=== PATIENT | female | born 1955 | race Caucasian/White ===

== ENCOUNTER 2020-01-06 10:29 | Emergency (ER) | payer OTHER, SELFPAY ==
--- NOTE | ~2020-01-06 | CT_ITS ---
. EXAMINATION: CT brain wo con EXAM DATE: 01/06/2020 11:50 INDICATION: Paresthesias. TECHNIQUE: Spiral CT of the head was performed without contrast. Axial, coronal and sagittal images were reviewed. The dose-length product (DLP) for this examination was 605.33 mGy-cm. The exposure w as tailored according to patient size, and iterative reconstruction (ASIR) was used as additional dos e reduction technique. Comparison is made to prior examination from 06/03/2018. FINDINGS: There is no acute intraparenchymal hemorrhage. No evidence of intraparenchymal brain mass lesion. No evidence of acute infarction. Please note that initial head CT has limited sensitivity f or small or acute infarctions. There is small arachnoid cyst in the left middle cranial fossa. Ther e is moderate periventricular and subcortical hypodensity, nonspecific but probably related to small vessel ischemic disease. There is intracranial carotid arteriosclerosis. There are no extra-axial collections. There is no mass effect or midline shift. The orbits are unremarkable. Soft tissue i s unremarkable. The visualized sinuses and mastoid air cells are well aerated. Resolution of previo usly seen subdural hygromas. IMPRESSION: 1. No acute intracranial findings. 2. 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 Reviewed, dictated and finalized at location B. SPERSON
[2020-01-06 10:35] VITALS: BP 131/73; PULSE 94; RESP 16; TEMP 36.5; O2SAT 99
--- NOTE | 2020-01-06 11:32 | ED.GENADULT ---
HPI - General Adult General Chief complaint: Unspecified Stated complaint: PAIN IN MY BACK, SOMETHING ISN'T RIGHT Time Seen by Provider: 01/06/20 11:17 Source: patient Mode of arrival: ambulatory Limitations: no limitations History of Present Illness HPI narrative: This is a 64 year old female that presents to the ER for an episode of back pain just prior to arrival. Reports she was sitting at her desk. Reports she felt a sharp pain down her spine. Reports it made her feel very nauseous, but she did not vomit. Reports she then felt tingling all over her body. Reports this all lasted for about 45 seconds and the symptoms have resolved. Reports she was recently put on a steroid taper for fluid in her ear. Reports she just stopped this medicine. Reports it was making her feel very anxious and agitated. Denies any current symptoms. Denies fever, vision changes, chest pain, shortness of breath, back pain, numbness, weakness. Related Data Allergies Allergy/AdvReac Type Severity Reaction Status Date / Time clavulanic acid Allergy Mild Unknown Verified 01/06/20 10:57 amoxicillin Allergy Unknown Swelling Verified 01/06/20 10:57 Review of Systems Review of Systems: Narrative: CONSTITUTIONAL: Denies fever EYES: Denies visual changes CARDIOVASCULAR: Denies chest pain RESPIRATORY: Denies dyspnea. GASTROINTESTINAL: Denies vomiting SKIN: Denies rash MUSCULOSKELETAL: Reports back pain NEUROLOGIC: Denies headache, numbness, or weakness. PSYCHIATRIC: Reports anxiety All systems reviewed & are unremarkable except as noted in HPI and below PMFSH Past Medical History Medical History (Updated 01/06/20 @ 13:33 by Betsy Lockwood PA-C) Essential (primary) hypertension ERIBERTO (generalized anxiety disorder) Family History Family History (Updated 10/02/15 @ 23:21 by DOCTOR UNKNOWN) Mother Patient's mother is in good health Sibling Patient's sister is in good health Patient's brother is in good health Social History Social History (Updated 11/20/19 @ 15:44 by Violette Stubbs) Smoking packs per day: 0.5 Smoking cigarettes per day: 10.0 Years smoked: 20 Smoking pack-years: 10.00 Smoking status: Former smoker Tobacco type: cigarettes Second hand tobacco smoke exposure: No Smoking end date: 03/06/15 Alcohol intake: never Substance use: never Substance use type: does not use Gender identity (if verbalized by the patient): Female Exam Narrative: Exam Narrative: GENERAL: Well-appearing, well-nourished, and in no acute distress. HEAD: Normocephalic, atraumatic. EYES: PERRLA and EOMI. ENT: Nares clear, no rhinorrhea or epistaxis. Mucous membranes moist. Oropharynx without tonsillar hypertrophy exudate or other lesions. Bilateral TMs pearly mantilla non-bulging NECK: Supple. No adenopathy or masses. CHEST: Clear to auscultation. No respiratory distress. No wheezes rales or rhonchi HEART: Regular rate and rhythm. No murmur heard. Normal peripheral pulses. BACK: No midline spinal tenderness EXTREMITIES: Normal range of motion. No edema. Strength equal in bilateral upper and lower extremities (5/5) SKIN: Warm, dry, no rash. NEURO: No focal deficits. Alert and oriented x3. Cranial nerves II through XII grossly intact PSYCH: Normal mood and affect Course Vital Signs Vital signs: Vital Signs Temperature 97.7 F 01/06/20 10:35 Pulse Rate 94 01/06/20 10:35 Respiratory Rate 16 01/06/20 10:35 Blood Pressure 131/73 01/06/20 10:35 Pulse Oximetry 99 01/06/20 10:35 Temperature 97.7 F 01/06/20 10:35 Pulse Rate 84 01/06/20 13:20 Respiratory Rate 18 01/06/20 13:20 Blood Pressure 123/87 01/06/20 13:20 Pulse Oximetry 100 01/06/20 13:20 Medical Decision Making MDM Narrative Medical decision making narrative: Patient presents to the emergency department for an episode of brief back pain today followed by paresthesias over her entire body. Her vitals are normal. She is afebrile and nontoxi
[2020-01-06 11:46] LABS: Basophils Absolute Auto 0.1 K/mm3 (0.0-0.1); Basophils Percent Auto 0.6 % (0.2-1.2); Eosinophils Absolute Auto 0.1 K/mm3 (0-0.3); Eosinophils Percent Auto 0.8 % (0-4.4); Hematocrit 41.8 % (37.0-47.0); Hemoglobin 14.2 g/dL (12.0-15.0); Immature Granulocyte Absolute 0.06 K/mm3 (0.00-0.031); Immature Granulocyte Percent A 0.6 % (0-0.5); Lymphocytes Absolute Auto 2.45 K/mm3 (0.9-3.2); Lymphocytes Percent Auto 23.5 % (18.3-44.2); Mean Corpuscular Hemoglobin 29.5 pg (26-34); Mean Corpuscular Volume 86.9 fl (80-100); Mean Platelet Volume 9.5 fl (7.4-10.4); Monocytes Absolute Auto 0.7 K/mm3 (0.1-0.6); Monocytes Percent Auto 6.7 % (2.6-8.5); Neutrophils Absolute Auto 7.1 K/mm3 (1.3-6.7); Neutrophils Percent Auto 67.8 % (45.5-73.1); Platelet Count Result 287 k/mm3 (150-375); Red Blood Count 4.81 M/mm3 (4.2-5.4); Red Cell Distribution Width 12.3 % (11.5-14.5); White Blood Count 10.4 K/mm3 (4.5-10.0)
--- NOTE | 2020-01-06 11:55 | PC.NURSE ---
added on c reactive prot at 11:55, spoke to Radha(?) in chemistry
[2020-01-06 12:00] LABS: Anion Gap 8 mmol/L (8-16); Blood Urea Nitrogen 16 mg/dL (7-17); Calcium 9.2 mg/dL (8.4-10.2); Carbon Dioxide 26 mmol/L (22-30); Chloride 102 mmol/L (98-107); Estimated CRCL calculation 51 ml/min; Estimated Glomerular Filt Rate > 60; Glucose 118 mg/dL (65-105); Potassium 4.2 mmol/L (3.4-5.0); Sodium 136 mmol/L (137-145)
[2020-01-06 12:51] LABS: CRP < 0.5 mg/dL (<1.0)
[2020-01-06 13:20] VITALS: BP 123/87; PULSE 84; RESP 18; O2SAT 100
[2020-01-06 13:37] LABS: Add Urine Microscopic? YES; Appearance Urine Clear (Clear); Bacteria Urine Trace /hpf; Bilirubin Urine Negative (Negative); Blood Urine Negative (Negative); Color Urine Yellow (Yellow); Glucose Urine UA Negative (Negative); Ketones Urine Negative (Negative); Leukocyte Esterase Ur 2+ LEU/UL (Negative); Mucus Urine Heavy /lpf; Nitrate Urine Negative (Negative); Protein Urine 1+ mg/dL (Negative); RBC Urine 0-2 /hpf (0-2); Squamous Epithelial Cell Urine Moderate /hpf (Few); Transitional Epi Cells Urine Rare /hpf (None Seen); Urobilinogen Urine Negative mg/dL (<2.0); WBC Urine 21-30 /hpf
[2020-01-06 13:48] LABS: Specific Grav Ur 1.033 (1.001-1.035)
== END 2020-01-06 14:07 | disposition home or self-care (01) ==
PROVIDERS: Physician Assistant; Emergency Provider Emergency Medicine; PCP Family Medicine
DX: M54.9 Dorsalgia, unspecified (principal); I10 Essential (primary) hypertension; Z87.891 Personal history of nicotine dependence
CPT/HCPCS: 36415; 70450; 80048; 81001; 85025; 86140; 87086; 99284

== ENCOUNTER 2020-11-23 14:43 | Emergency (ER) | payer BC, SELFPAY ==
[2020-11-23] VITALS (9 sets, daily range): BP systolic 94–115; BP diastolic 39–92; PULSE 85–107; RESP 15–25; TEMP 36.3; O2SAT 94–100
--- NOTE | ~2020-11-23 | XR_ITS ---
EXAMINATION: XR chest 2V DATE: 11/23/2020 15:11 INDICATION: Chest pain. Arrhythmia. TECHNIQUE: Frontal and lateral views of the chest were obtained. COMPARISON: Chest 2 views 06/03/2018, chest CT 01/22/2017 FINDINGS: There is mild scarring in the upper lobes. There are lucencies in the lungs, consistent wit h emphysema. No pleural effusion or pneumothorax. The heart size is normal. IMPRESSION: 1. Emphysema. 2. Mild scarring in the upper lobes. Reviewed, dictated and finalized at location A.
--- NOTE | 2020-11-23 14:57 | ECG_ITS ---
Measurements Intervals [place] Rate: 104 P: 76 [place]: 124 QRS: -18 QRSD: 101 T: 48 QT: 338 QTc: 445 Interpretive Statements SINUS TACHYCARDIA BASELINE ARTIFACT- I, II, AVR, AVL BORDERLINE ECG Electronically Signed On 11-23-2020 16:39:41 CDT by Garrett Inman D.O.
[2020-11-23 15:42] LABS: Basophils Absolute Auto 0.1 K/mm3 (0.0-0.1); Basophils Percent Auto 0.6 % (0.2-1.2); Eosinophils Absolute Auto 0.2 K/mm3 (0-0.3); Eosinophils Percent Auto 1.8 % (0-4.4); Hematocrit 41.5 % (37.0-47.0); Hemoglobin 14.2 g/dL (12.0-15.0); Immature Granulocyte Absolute 0.04 K/mm3 (0.00-0.031); Immature Granulocyte Percent A 0.4 % (0-0.5); Lymphocytes Absolute Auto 2.27 K/mm3 (0.9-3.2); Lymphocytes Percent Auto 22.7 % (18.3-44.2); Mean Corpuscular HGB Conc 34.2 g/dl (32-36); Mean Corpuscular Hemoglobin 30.1 pg (26-34); Mean Corpuscular Volume 88.1 fl (80-100); Mean Platelet Volume 9.9 fl (7.4-10.4); Monocytes Absolute Auto 0.7 K/mm3 (0.1-0.6); Monocytes Percent Auto 6.8 % (2.6-8.5); Neutrophils Absolute Auto 6.8 K/mm3 (1.3-6.7); Neutrophils Percent Auto 67.7 % (45.5-73.1); Platelet Count Result 324 k/mm3 (150-375); Red Blood Count 4.71 M/mm3 (4.2-5.4); Red Cell Distribution Width 11.8 % (11.5-14.5)
--- NOTE | 2020-11-23 15:47 | ED.GENADULT ---
HPI - General Adult General Chief complaint: Arrhythmia/Palpitations Stated complaint: rapid heart rate Time Seen by Provider: 11/23/20 15:00 Source: patient History of Present Illness HPI narrative: Patient is a 65 y/o female complaining chest pain starting about 2 hours ago at 1:45 PM. She describes her pain as sharp stabbing with radiation to neck and jaw. She rates her pain as 10/10 when it happened. There is no alleviating or exacerbating factor. She was driving and on her way to a previously scheduled appointment with Dr. Farfan. She stopped driving briefly and eventually made it to Dr. Farfan's office. She was found to have HR of over [address] Farfan's office. EMS was called to bring her here. However, her chest pain and palpitation resolved prior to arrival in ED. Related Data Home Medications Medication Instructions Recorded Confirmed aspirin 81 mg tablet,delayed 81 mg PO DAILY 11/23/20 release hydrochlorothiazide 25 mg tablet 25 mg PO DAILY 11/23/20 Allergies Allergy/AdvReac Type Severity Reaction Status Date / Time clavulanic acid Allergy Mild Unknown Verified 11/23/20 15:15 amoxicillin Allergy Unknown Swelling Verified 11/23/20 15:15 Review of Systems Constitutional: Constitutional: Denies chills, Denies fever(s), Denies headache(s) and Denies weakness Eyes: Eyes: Denies blurry vision ENT: Denies headache(s) and Denies neck pain Cardiovascular: Cardiovascular: Reports chest pain, Reports rapid heart rate and Denies dyspnea Respiratory: Respiratory: Denies cough and Denies dyspnea Gastrointestinal: Gastrointestinal: Denies abdominal pain, Denies diarrhea, Denies nausea and Denies vomiting Genitourinary: Genitourinary: Denies hematuria and Denies dysuria Musculoskeletal: Musculoskeletal: Denies back pain and Denies neck pain Neurologic: Denies headache(s) and Denies weakness [facility] Past Medical History Medical History Essential (primary) hypertension ERIBERTO (generalized anxiety disorder) Family History Family History Mother Patient's mother is in good health Sibling Patient's sister is in good health Patient's brother is in good health Social History Social History Smoking packs per day: 0.5 Smoking cigarettes per day: 10.0 Years smoked: 20 Smoking pack-years: 10.00 Smoking status: Former smoker Tobacco type: cigarettes Second hand tobacco smoke exposure: No Smoking end date: 03/06/15 Alcohol intake: never Substance use: never Substance use type: does not use Gender identity (if verbalized by the patient): Female Sexual Orientation (if Verbalized by the Patient): Straight or Heterosexual Exam Const: General: no acute distress and well developed Orientation/consciousness: oriented to person, oriented to place, oriented to time and patient oriented x3 HENMT: Head: normocephalic Ears: external ears normal General nose exam: Normal external nose present Eyes: General: appearance normal, both eyes and all related structures Conjunctivae: conjunctivae normal Neck: Neck: normal visual inspection and full ROM Chest: Chest palpation & inspection: normal inspection of the chest and no tenderness Resp: Effort & Inspection: normal respiratory effort Auscultation: clear to auscultation bilaterally Cardio: Rate: tachycardic Rhythm: regular rhythm GI: GI Palp: No abdominal tenderness and Yes Soft to palpation Skin: General skin exam: normal color and turgor normal Neuro: General: oriented to person, oriented to place, oriented to time and patient oriented x3 Cognition (Neuro): normal cognition Extrem: General: normal to inspection, full ROM and no pedal edema Psych: Appearance: grossly normal Mental Status: mental status grossly normal Affect: normal affect Course Reevaluation(s) Reevaluation
[2020-11-23 15:52] LABS: Prothrombin Time 12.7 Seconds (11.1-14.7)
[2020-11-23 15:53] LABS: Anion Gap 17 mmol/L (8-16); Blood Urea Nitrogen 16 mg/dL (7-17); Calcium 9.5 mg/dL (8.4-10.2); Carbon Dioxide 19 mmol/L (22-30); Chloride 98 mmol/L (98-107); Estimated CRCL calculation 50 ml/min; Estimated Glomerular Filt Rate > 60; Glucose 141 mg/dL (65-110); Partial Thromboplastin Time 35.3 SECONDS (22.3-36.8); Potassium 4.3 mmol/L (3.4-5.0); Sodium 134 mmol/L (137-145)
[2020-11-23 16:05] LABS: Troponin I < 0.012 ng/mL (0.000-0.034)
--- NOTE | 2020-11-23 18:50 | PC.NURSE ---
PT DISTURBED BY NEIGHBOR PATIENT WHO WENT TO HER SIDE OF THE ROOM AND BEGAN TALKING TO HER. THE NEIGHBOR PT PULLED OUT HIS IV AND STARTING DRIPPING BLOOD ON THE FLOOR NEXT TO THE PT. PT WISHES TO LEAVE PRIOR TO 3HOUR TROP BEING OBTAINED. DR ROMERO AWARE
== END 2020-11-23 18:55 | disposition left against medical advice (07) ==
PROVIDERS: Emergency Medicine; Emergency Provider Emergency Medicine; PCP Family Medicine
DX: R07.9 Chest pain, unspecified (principal); R00.0 Tachycardia, unspecified; I10 Essential (primary) hypertension; Z79.82 Long term (current) use of aspirin; Z87.891 Personal history of nicotine dependence
CPT/HCPCS: 36415; 71046; 80048; 84484; 85025; 85610; 85730; 93005; 99284

== ENCOUNTER 2020-11-26 06:55 | Outpatient (CLI) | payer BC, SELFPAY ==
[2020-11-26 08:17] LABS: Cholesterol 257 mg/dL (0-200); HDL Direct 32 mg/dL; Triglycerides 302 mg/dL (<150)
[2020-11-26 08:27] LABS: LDL Cholesterol Direct 156 mg/dL
[2020-11-26 08:36] LABS: Hemoglobin A1C 6.3 % (<5.7)
== END 2020-11-26 06:56 | disposition home or self-care (01) ==
PROVIDERS: PCP Family Medicine; Visit Provider Family Medicine
DX: E78.1 Pure hyperglyceridemia (principal); R73.01 Impaired fasting glucose; R53.83 Other fatigue
CPT/HCPCS: 36415; 80061; 83036; 84443

== ENCOUNTER 2021-06-04 06:57 | Outpatient (CLI) | payer BC, SELFPAY ==
[2021-06-04 08:17] LABS: Alanine Aminotransferase 30 U/L (4-35); Albumin Level 4.5 g/dL (3.5-5.1); Alkaline Phosphatase 113 U/L (38-126); Anion Gap 9 mmol/L (8-16); Aspartate Amino Transferase 36 U/L (14-36); Bilirubin,Total 0.8 mg/dL (0.2-1.3); Blood Urea Nitrogen 14 mg/dL (7-17); Calcium 8.9 mg/dL (8.4-10.2); Carbon Dioxide 26 mmol/L (22-30); Chloride 104 mmol/L (98-107); Cholesterol 233 mg/dL (0-200); Estimated Glomerular Filt Rate > 60; Glucose 134 mg/dL (65-110); HDL Direct 28 mg/dL; Potassium 4.3 mmol/L (3.4-5.0); Sodium 139 mmol/L (137-145); Triglycerides 235 mg/dL (<150)
[2021-06-04 08:28] LABS: LDL Cholesterol Direct 139 mg/dL
[2021-06-04 08:40] LABS: Hemoglobin A1C 6.1 % (<5.7)
== END 2021-06-04 06:58 | disposition home or self-care (01) ==
LOC: ANHLAB 06:58
PROVIDERS: PCP Family Medicine; Visit Provider Family Medicine
DX: E78.1 Pure hyperglyceridemia (principal); R73.01 Impaired fasting glucose; I10 Essential (primary) hypertension
CPT/HCPCS: 36415; 80053; 80061; 83036

== ENCOUNTER 2023-05-22 06:43 | Outpatient (CLI) | payer BC, SELFPAY ==
[2023-05-22 07:49] LABS: Hemoglobin 13.9 g/dL (12.0-15.0); Mean Corpuscular HGB Conc 33.1 g/dl (32-36); Mean Corpuscular Volume 87.5 fl (80-100); Mean Platelet Volume 10.7 fl (7.4-10.4); Platelet Count Result 197 k/mm3 (150-375); Red Cell Distribution Width 12.7 % (11.5-14.5)
[2023-05-22 08:06] LABS: Alanine Aminotransferase 43 U/L (6-35); Albumin Level 4.5 g/dL (3.5-5.1); Alkaline Phosphatase 88 U/L (38-126); Anion Gap 9 mmol/L (8-16); Aspartate Amino Transferase 37 U/L (14-36); Bilirubin,Total 0.8 mg/dL (0.2-1.3); Blood Urea Nitrogen 12 mg/dL (7-17); Calcium 9.2 mg/dL (8.4-10.2); Carbon Dioxide 22 mmol/L (22-30); Chloride 105 mmol/L (98-107); Cholesterol 189 mg/dL (0-200); Estimated Glomerular Filt Rate > 60; Glucose 168 mg/dL (65-110); HDL Direct 29 mg/dL; Potassium 3.9 mmol/L (3.4-5.0); Sodium 136 mmol/L (137-145); Triglycerides 240 mg/dL (<150)
[2023-05-22 08:17] LABS: LDL Cholesterol Direct 108 mg/dL
[2023-05-22 08:30] LABS: Appearance Urine Clear (Clear); Bacteria Urine None Seen /hpf; Bilirubin Urine Negative (Negative); Blood Urine Trace (Negative); Color Urine Yellow (Yellow); Glucose Urine UA Negative (Negative); Ketones Urine Negative (Negative); Leukocyte Esterase Ur Trace LEU/UL (Negative); Nitrate Urine Negative (Negative); Non Pathogenic Casts 0-2; Protein Urine Negative (Negative); RBC Urine 0-2 /hpf (0-2); Specific Grav Ur 1.018 (1.001-1.035); Squamous Epithelial Cell Urine None Seen /hpf (Few); Urobilinogen Urine 0.2 mg/dL (<2.0); WBC Urine 0-5 /hpf (0-3)
[2023-05-22 08:32] LABS: Add Urine Microscopic? YES
[2023-05-22 08:32] LABS: Thyroid Stimulating Hormone 0.872 uIU/mL (0.465-4.680)
[2023-05-22 08:34] LABS: Hemoglobin A1C 6.8 % (<5.7)
== END 2023-05-22 06:44 | disposition home or self-care (01) ==
LOC: ANHLAB 06:45
PROVIDERS: PCP Family Medicine; Visit Provider Physician Assistant
DX: Z00.00 Encounter for general adult medical examination without abnormal findings (principal); E78.1 Pure hyperglyceridemia; I10 Essential (primary) hypertension; R73.01 Impaired fasting glucose
CPT/HCPCS: 36415; 80053; 80061; 83036; 84443; 85027

== ENCOUNTER 2023-11-28 06:47 | Outpatient (CLI) | payer BC, SELFPAY ==
[2023-11-28 07:42] LABS: Alanine Aminotransferase 56 U/L (6-35); Albumin Level 4.7 g/dL (3.5-5.1); Alkaline Phosphatase 104 U/L (38-126); Anion Gap 12 mmol/L (4-12); Aspartate Amino Transferase 65 U/L (14-36); Blood Urea Nitrogen 15 mg/dL (7-17); Calcium 9.1 mg/dL (8.4-10.2); Carbon Dioxide 25 mmol/L (22-30); Chloride 98 mmol/L (98-107); Estimated Glomerular Filt Rate > 60; Glucose 166 mg/dL (65-110); Potassium 3.9 mmol/L (3.4-5.0); Sodium 135 mmol/L (137-145)
== END 2023-11-28 06:48 | disposition home or self-care (01) ==
PROVIDERS: PCP Family Medicine; Visit Provider Physician Assistant
DX: R73.01 Impaired fasting glucose (principal); R73.09 Other abnormal glucose; R79.89 Other specified abnormal findings of blood chemistry; Z92.241 Personal history of systemic steroid therapy
CPT/HCPCS: 36415; 80053; 83036

== ENCOUNTER 2024-05-23 06:56 | Outpatient (CLI) | payer BC, SELFPAY ==
--- OUTSIDE RECORDS SUMMARY | 2024-05-23 06:58 | XMS_ITS | Clinical Summary ---
Author Organization [facility] Address [address] [place] [id number] Care Team Providers Care Warehouseman Name Role Phone Unavailable Primary Care Provider Unavailabl e Allergies Active Allergy Reactions Criticality Noted Date Comments Amoxicillin Nausea and Vomiting Low 12/07/2016 Amoxicillin-Pot Clavulanate Nausea and Vomiting Low 12/07/2016 Medications escitalopram oxalate (LEXAPRO) 10 mg tablet 08/07/2022 Active famotidine (PEPCID) 40 mg tablet Take 40 mg by mouth daily. 06/20/2022 Active lisinopriL (PRINIVIL) 30 mg tablet Take 30 mg by mouth daily. 07/08/2022 Active Active Problems No known active problems Social History Tobacco Use Types Packs/Day Years Used Date Smoking Tobacco: Former Cigarettes Q uit: 08/19/2014 Smokeless Tobacco: Never Comments Unknown Sex and Gender Information Value Date Recorded Sex Assigned at Not on file Legal Sex Female 8:45 AM CDT Gender Identity Not on file Sexual Orientation Not on file Last Filed Vital Signs Vital Sign Reading Time Taken Comments Blood Pressure 130/78 08/10/2022 9:28 AM CDT Pulse 81 08/10/2022 9:28 AM CDT Temperature 36.7 C (98.1 F) 08/10/2022 9:28 AM CDT Respiratory Rate - - Oxygen Saturation 97% 08/10/2022 9:28 AM CDT Inhaled Oxygen Concentration - - Weight 68.5 kg (151 lb 2 oz) 08/10/2022 9:28 AM CDT Height 167.6 cm (5' 6 ) 08/10/2022 9:28 AM CDT Body Mass Index 24.39 08/10/2022 9:28 AM CDT Plan of Treatment Health Maintenance Due Date Last Done Comments DTAP/TDAP/TD VACCINES (1 - Tdap) 1972 BREAST CANCER SCREENING 1993 COLORECTAL SCREENING 1998 Colorectal Cancer Screening 1998 FIT-DNA Q 3 years 1998 FIT/FOBT Q 1 year 1998 Flex Sig/CT Colonography Q 5 years 1998 PNEUMOCOCCAL VACCINE 50+ YEARS (1 of 1 - PCV) 09/22/19 04 ZOSTER VACCINE (1 of 2) 09/22/2003 OSTEOPOROSIS SCREENING 2018 INFLUENZA VACCINE (#1) 2023 RSV VACCINE (60+ or ) (1 - 1-dose 75+ series) 2028 Insurance BLUE ACCESS CHOICE
--- OUTSIDE RECORDS SUMMARY | 2024-05-23 06:58 | XMS_ITS | Clinical Summary ---
Author Organization [facility] Address [address] [place] [address] Care Team Providers Care Nursing Home Physician Name Role Phone Robinson Farfan MD Primary Care Provider [phone] [facility],non-owned Affiliates and Associated Physician Practices is amultiple site organization consisting of ambulatory clinics and hospital sitesin [place], [place], [place] and [place]. This disclosure is being madepursuant to the Care Everywhere program and may not contain all information available regarding this patient. Last updated 17.[facility] Allergies Active Allergy Reactions Criticality Noted Date Comments Amoxicillin Nausea and/or Vomiting 12/07/2016 Augmentin Nausea and/or Vomiting 12/07/2016 Medications * Be aware that medications may not be up to date on this document. Alwaysverify current medications with the patient. Medication Sig Dispensed Refills Start Date End Date Status LISINOPRIL PO Active wrctikqy-cemgriqeu-dg (CORTISPORIN) 3.5-37256-6 otic suspensionIndications: Acute otitis externa of left ear, unspecified type Instill 4 drops into left ear 4 times daily 10 mL 12/27/2016 Active Social History Tobacco Use Types Packs/Day Years Used Date Smoking Tobacco: Never Smokeless Tobacco: Never Sex and Gender Information Value Date Recorded Sex Assigned at Not on file Gender Identity Not on file Sexual Orientation Not on file Last Filed Vital Signs Vital Sign Reading Time Taken Comments Blood Pressure 146/102 12/27/2016 4:33 PM CDT Pulse 83 12/27/2016 4:33 PM CDT Temperature 36.8 C (98.3 F) 12/27/2016 4:33 PM CDT Respiratory Rate 16 12/27/2016 4:33 PM CDT Oxygen Saturation 97% 12/27/2016 4:33 PM CDT Inhaled Oxygen Concentration - - Weight 68.9 kg (152 lb) 12/27/2016 4:33 PM CDT Height 167.6 cm (5' 6 ) 12/27/2016 4:33 PM CDT Body Mass Index 24.53 12/27/2016 4:33 PM CDT Plan of Treatment Health Maintenance Due Date Last Done Comments BONE DENSITY TESTING 1953 COLOGUARD (AGES 45-75) - COL ON CA SCREENING 1953 COLON MONITORING 1953 COLONOSCOPY - COLON CA SCREENING 1953 CT COLONOGRAPHY - COLON CA SCREENING 1953 Colorectal Cancer Screening 1953 FIT - COLON CA SCREENING 1953 FLEX SIG - COLON CA SCREENING 1953 LIPID TESTING 1953 MAMMOGRAM 1953 HEPATITIS C SCREENING 09/17/1971 DTAP/TDAP/TD VACCINES (1 - Tdap) 1972 PNEUMOCOCCAL VACCINE 50+ (1 of 1 - PCV) 09/22/2003 ZOSTER VACCINE (1 of 2) 09/22/2003 COVID-19 VACCINE (1 - 2023-2 5 season) 2023 INFLUENZA VACCINE (#1) 2023 DEPRESSION SCREENING 03/06/2024 Respiratory Syncytial Virus (RSV) Vaccine Pt: or over 60 yrs (1 - 1-dose 75+ series) 2028 HEPATITIS B VACCINE Aged Out No longe r eligible based on patient's age to complete this topic HIB VACCINE Aged Out No longer eligi ble based on patient's age to complete this topic HPV VACCINE Aged Out No longer eligi ble based on patient's age to complete this topic MENINGOCOCCAL (Group B) VACC INE SHARED DECISION-MAKING Aged Out No longer eligibl e based on patient's age to complete this topic MENINGOCOCCAL GROUPS A/C/Y/W VACCINE Aged Out No longer eligible b ased on patient's age to complete this topic Care Teams Nursing Home Physician Relationship Specialty Start Date End Date Robinson Farfan MD [address] [place] [address] PCP - General Family Medicine 12/07/16
[2024-05-23 08:25] LABS: Alanine Aminotransferase 43 U/L (6-35); Albumin Level 4.5 g/dL (3.5-5.1); Alkaline Phosphatase 114 U/L (38-126); Anion Gap 11 mmol/L (4-12); Aspartate Amino Transferase 40 U/L (14-36); Bilirubin,Total 0.9 mg/dL (0.2-1.3); Blood Urea Nitrogen 15 mg/dL (7-17); Calcium 9.3 mg/dL (8.4-10.2); Carbon Dioxide 24 mmol/L (22-30); Chloride 104 mmol/L (98-107); Estimated Glomerular Filt Rate > 60; Glucose 126 mg/dL (65-110); Potassium 3.9 mmol/L (3.4-5.0); Sodium 139 mmol/L (137-145)
[2024-05-23 08:32] LABS: Hemoglobin A1C 6.4 % (<5.7)
== END 2024-05-23 06:57 | disposition home or self-care (01) ==
PROVIDERS: PCP Family Medicine; Visit Provider Physician Assistant
DX: E78.5 Hyperlipidemia, unspecified (principal); E11.9 Type 2 diabetes mellitus without complications; I10 Essential (primary) hypertension
CPT/HCPCS: 36415; 80053; 83036

== ENCOUNTER 2024-10-03 07:03 | Outpatient (CLI) | payer BC, SELFPAY ==
--- OUTSIDE RECORDS SUMMARY | 2024-10-03 07:07 | XMS_ITS | Clinical Summary ---
Author Organization [facility] Address [address] [place] [id number] Care Team Providers Care Customer Servicer Name Role Phone Unavailable Primary Care Provider [...] 9:28 AM CDT Height 167.6 cm (5' 6) 08/10/2022 9:28 AM CDT Body Mass Index [...] 09/22/2003 OSTEOPOROSIS SCREENING 2018 INFLUENZA VACCINE (#1) 2024 RSV VACCINE (60+ or ) (1 - 1-dose 75+ series) 2028 Insurance BLUE ACCESS CHOICE
--- OUTSIDE RECORDS SUMMARY | 2024-10-03 07:07 | XMS_ITS | Clinical Summary ---
Author Organization [facility] Address [address] [place] [address] Care Team Providers Care Real Estate Developer Name Role Phone Robinson Farfan MD Primary Care Provider [phone] Source Comments [facility],non-owned Affiliates and Associated Physician Practices is amultiple site organization consisting of ambulatory clinics and hospital sitesin [place], [place], [place] and [place]. This disclosure is being madepursuant to the Care Everywhere program and may not contain all information available regarding this patient. Last updated 17.[employer] [facility] Allergies Active Allergy Reactions Criticality Noted Date Comments Amoxicillin Nausea and/or Vomiting 12/07/2016 Augmentin Nausea and/or Vomiting 12/07/2016 Medications * Be aware that medications may not be up to date on this document. Alwaysverify current medications with the patient. LISINOPRIL PO Active neomycin-polymyx in-hc (CORTISPORIN) 3.5-86589-3 otic suspensionIndica tions:Acute otitis externa of left ear, unspecified type Instill 4 drops into left ear 4 times daily 10 mL 12/27/2016 Active Social History Tobacco Use Types Packs/Day Years Used Date Smoking Tobacco: Never Smokeless Tobacco: Never Comments Unknown Sex and Gender Information Value Date Recorded Sex Assigned at Not on file Legal Sex Female 9:15 AM CDT Gender Identity Not on file [...] 4:33 PM CDT Height 167.6 cm (5' 6) 12/27/2016 4:33 PM CDT Body Mass Index [...] VACCINE (1 of 2) 09/22/2003 COVID-19 VACCINE ( - 2023-2 5 season) 2023 DEPRESSION SCREENING 03/06/2024 INFLUENZA VACCINE (#1) 2024 Respiratory Syncytial Virus (RSV) Vaccine Pt: or [...] on patient's age to complete this topic Insurance ANTHEM Care Teams Real Estate Developer Relationship Specialty Start Date End Date Robinson Farfan MD [address] [place] [address] PCP - General Family Medicine 12/07/16
[2024-10-03 08:08] LABS: Add Urine Microscopic? YES; Appearance Urine Clear (Clear); Glucose Urine UA Negative (Negative); Leukocyte Esterase Ur 2+ LEU/UL (Negative); Nitrate Urine Negative (Negative); Non Pathogenic Casts 0-2; Specific Grav Ur 1.018 (1.001-1.035)
[2024-10-03 08:15] LABS: Hematocrit 40.0 % (37.0-47.0); Hemoglobin 13.0 g/dL (12.0-15.0); Mean Corpuscular HGB Conc 32.5 g/dl (32-36); Mean Corpuscular Hemoglobin 28.3 pg (26-34); Mean Corpuscular Volume 87.0 fl (80-100); Platelet Count Result 181 k/mm3 (150-375); Red Blood Count 4.60 M/mm3 (4.2-5.4); White Blood Count 5.9 K/mm3 (4.5-10.0)
[2024-10-03 08:32] LABS: MALB Creatinine Ratio 17.0 mg/g (0-30)
[2024-10-03 08:46] LABS: Alanine Aminotransferase 73 U/L (6-35); Albumin Level 4.4 g/dL (3.5-5.1); Alkaline Phosphatase 109 U/L (38-126); Anion Gap 11 mmol/L (4-12); Aspartate Amino Transferase 78 U/L (14-36); Bilirubin,Total 1.1 mg/dL (0.2-1.3); Blood Urea Nitrogen 13 mg/dL (7-17); Calcium 9.5 mg/dL (8.4-10.2); Carbon Dioxide 24 mmol/L (22-30); Chloride 104 mmol/L (98-107); Cholesterol 205 mg/dL (0-200); Estimated Glomerular Filt Rate > 60; Glucose 151 mg/dL (65-110); HDL Direct 26 mg/dL; Potassium 4.2 mmol/L (3.4-5.0); Sodium 139 mmol/L (137-145); Total Protein 8.6 g/dL (6.3-8.2); Triglycerides 282 mg/dL (<150)
[2024-10-03 09:13] LABS: Thyroid Stimulating Hormone 0.514 uIU/mL (0.465-4.680)
[2024-10-03 09:23] LABS: Hemoglobin A1C 6.8 % (<5.7)
== END 2024-10-03 07:04 | disposition home or self-care (01) ==
LOC: ANHLAB 07:05
PROVIDERS: PCP Family Medicine; Visit Provider Physician Assistant
DX: E78.1 Pure hyperglyceridemia (principal); Z00.00 Encounter for general adult medical examination without abnormal findings; E11.9 Type 2 diabetes mellitus without complications; I10 Essential (primary) hypertension; R79.89 Other specified abnormal findings of blood chemistry
CPT/HCPCS: 36415; 80053; 80061; 81001; 82043; 83036; 84443; 85027

== ENCOUNTER 2025-01-14 09:26 | Emergency (ER) | payer BC, SELFPAY ==
--- NOTE | ~2025-01-14 | CT_ITS ---
EXAMINATION: CT brain wo con DATE: 01/14/2025 09:38 INDICATION: Stroke TECHNIQUE: Computed tomography (CT) of the head was performed without intravenous contrast. The dose-length product was 605.33 mGy-cm. COMPARISON: January 06, 2020 FINDINGS: No large acute ischemic event, mass effect or hemorrhage. Moderate diffuse chronic microvascular ischemic white matter changes. Mild diffuse volume loss. Calvarial structures appear stable. IMPRESSION: 1. No intracranial mass effect, hemorrhage or large acute ischemic event. 2. Chronic findings as above. Reviewed, dictated and finalized at location A. SCAPING MANAGER
--- NOTE | ~2025-01-14 | CT_ITS ---
EXAM/PROCEDURE: CTA brain carotid HISTORY: dizziness COMPARISON: Noncontrast head CT earlier same date. Also upper chest portion from chest CT January 22, 2017. TECHNIQUE: Contrast-enhanced CT angiography of the head and neck FINDINGS: Three-vessel left-sided arch noted with patent common carotid arteries. Approximately 50-60% stenosis in the proximal left subclavian artery at the origin on the arch and in the proximal portion. 50% stenosis in the proximal left ICA with a calcified plaque lesion, and 25% stenosis on the right side. The mid and distal cervical ICAs are patent throughout. Vertebral arteries are patent with the left vertebral artery slightly dominant. Within the intracranial circulation, anterior and middle cerebral arteries, as well as the basilar and posterior cerebral arteries are patent. No discrete aneurysm, dural sinus thrombosis, AVM or abnormal enhancing lesions/masses seen. No acute process seen in the neck soft tissues. Biapical nodular changes with fibrotic and emphysematous changes noted. Nodular foci not clearly changed from the 2017 exam. There is been progression in emphysematous and fibrotic changes however. Heart no acute process seen in the visualized portions of the upper chest. Degenerative changes throughout the spine. IMPRESSION: 1. No critical stenosis or occlusion seen. 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 2. Biapical nodular changes not clearly changed from the 2017 exam, although there has been progression in diffuse emphysematous and fibrotic changes. Reviewed, dictated and finalized at location A. LINE WORKER IMPRESSION: 1. No critical stenosis or occlusion seen. Calcified plaque disease in the prox imal ICAs with approximately 50% stenosis in the left ICA as above. 2. Biapical nodular changes not clearly changed from the 2017 exam, although th ere has been progression in diffuse emphysematous and fibrotic changes.
--- NOTE | 2025-01-14 09:30 | ECG_ITS ---
Test Date: 2025-01-14 09:57:13 Measurements Intervals [place] Rate: 70 P: 62 SD: 165 QRS: -3 QRSD: 106 T: 45 QT: 377 QTc: 408 Interpretive Statements SINUS RHYTHM NONSPECIFIC T-WAVE ABNORMALITY No previous ECG available for comparison Electronically Signed On 01-14-2025 18:02:33 DELIVERY SUPERVISOR by Jono Hughes M.D.
--- OUTSIDE RECORDS SUMMARY | 2025-01-14 09:47 | XMS_ITS | Clinical Summary ---
Author Organization [facility] Address [address] [place] [id number] Care Team Providers Care Medical Coding Specialist Name Role Phone Unavailable Primary Care Provider [...]
--- OUTSIDE RECORDS SUMMARY | 2025-01-14 09:47 | XMS_ITS | Clinical Summary ---
Author Organization [facility] Address [address] [place] [address] Care Team Providers Care Color Shop Helper Name Role Phone Robinson Farfan MD Primary Care Provider [phone] Source Comments [facility],non-owned Affiliates and Associated Physician Practices is amultiple site organization consisting of ambulatory clinics and hospital sitesin [place], [place], [place] and [place]. This disclosure is being madepursuant to the Care Everywhere program and may not contain all information available regarding this patient. Last updated 17.[employer] Allergies Active Allergy Reactions Criticality Noted Date Comments Amoxicillin Nausea and/or Vomiting 12/07/2016 Augmentin Nausea and/or Vomiting 12/07/2016 Medications * Be aware that medications may not be up to date on this document. Alwaysverify current medications with the patient. LISINOPRIL PO Active neomycin-polymyx in-hc (CORTISPORIN) 3.5-51696-1 otic suspensionIndica tions:Acute otitis externa of left [...] 09/22/2003 ZOSTER VACCINE (1 of 2) 09/22/2003 DEPRESSION SCREENING 03/06/2024 COVID-19 VACCINE (1 - 2023-2 5 season) 2024 INFLUENZA VACCINE (#1) 2024 Respiratory Syncytial Virus [...] complete this topic Insurance ANTHEM Care Teams Color Shop Helper Relationship Specialty Start Date End Date Robinson Farfan MD [address] [place] [address] PCP - General Family Medicine 12/07/16
[2025-01-14 09:55] VITALS: BP 172/71; PULSE 73; PULSE 80; RESP 16; RESP 20; TEMP 36.4; O2SAT 95; O2SAT 96
[2025-01-14 09:57] LABS: Hematocrit 40.7 % (37.0-47.0); Hemoglobin 13.3 g/dL (12.0-15.0); Immature Granulocyte Percent A 0.3 % (0-0.5); Lymphocytes Absolute Auto 1.11 K/mm3 (0.9-3.2); Mean Corpuscular HGB Conc 32.7 g/dl (32-36); Mean Corpuscular Hemoglobin 28.9 pg (26-34); Mean Corpuscular Volume 88.3 fl (80-100); Nucleated Red Blood Cells Absolute Auto 0.000 K/mm3 (0.0-0.012); Nucleated Red Blood Cells Perc 0.0 % (0.0-0.2); Platelet Count Result 150 k/mm3 (150-375); Red Blood Count 4.61 M/mm3 (4.2-5.4); White Blood Count 6.9 K/mm3 (4.5-10.0)
[2025-01-14] MEDS: ONDANSETRON INJ 4 MG/2 ML VIAL IV PUSH (10:06)
[2025-01-14] MEDS: MECLIZINE HCL 25 MG TABLET PO (10:06)
[2025-01-14 10:08] VITALS: BP 147/70; PULSE 68; RESP 20; O2SAT 97
[2025-01-14 10:10] LABS: Alanine Aminotransferase 78 U/L (6-35); Albumin Level 4.5 g/dL (3.5-5.1); Alkaline Phosphatase 125 U/L (38-126); Anion Gap 10 mmol/L (4-12); Aspartate Amino Transferase 106 U/L (14-36); Bilirubin,Total 0.8 mg/dL (0.2-1.3); Blood Urea Nitrogen 15 mg/dL (7-17); Calcium 8.6 mg/dL (8.4-10.2); Carbon Dioxide 27 mmol/L (22-30); Chloride 103 mmol/L (98-107); Estimated CRCL calculation 63 ml/min; Estimated Glomerular Filt Rate > 60; Glucose 157 mg/dL (65-110); Potassium 4.0 mmol/L (3.4-5.0); Sodium 140 mmol/L (137-145); Total Protein 8.5 g/dL (6.3-8.2)
[2025-01-14 10:16] LABS: INR 1.1; Prothrombin Time 13.9 Seconds (11.1-14.7)
[2025-01-14 10:17] LABS: Partial Thromboplastin Time 32.7 Seconds (22.3-36.8)
[2025-01-14 10:24] LABS: Troponin I < 0.012 ng/mL (0.000-0.034)
--- OUTSIDE RECORDS SUMMARY | 2025-01-14 10:49 | XMS_ITS | Clinical Summary ---
Author Organization [facility] [employer] Address [address] [place] [id number] Care Team Providers Care Biomass Technician Name Role Phone Unavailable Primary Care Provider [...]
--- OUTSIDE RECORDS SUMMARY | 2025-01-14 10:49 | XMS_ITS | Clinical Summary ---
Author Organization [facility] Address [address] [place] [address] Care Team Providers Care Oracle Manager Name Role Phone Robinson Farfan MD Primary Care Provider [phone] Source Comments [facility],non-owned Affiliates and Associated Physician Practices is amultiple site organization consisting of ambulatory clinics and hospital sitesin [place], [place], [place] and [place]. This disclosure is being madepursuant to the Care Everywhere program and may not contain all information available regarding this patient. Last updated 17.[employer] [facility] Allergies Active Allergy Reactions Criticality Noted Date Comments Amoxicillin Nausea and/or Vomiting 12/07/2016 Augmentin Nausea and/or Vomiting 12/07/2016 Medications * Be aware that medications may not be up to date on this document. Alwaysverify current medications with the patient. LISINOPRIL PO Active neomycin-polymyx in-hc (CORTISPORIN) 3.5-44156-5 otic suspensionIndica tions:Acute otitis externa of left [...] complete this topic Insurance ANTHEM Care Teams Oracle Manager Relationship Specialty Start Date End Date Robinson Farfan MD [address] [place] [address] PCP - General Family Medicine 12/07/16
--- NOTE | 2025-01-14 10:50 | ED.NEUROSD ---
HPI - Neuro Symptoms/Deficit General Chief Complaint: Neuro Symptoms/Deficit Stated Complaint: dizzy, code stroke Time Seen by Provider: 01/14/25 09:30 History of Present Illness HPI Narrative: Pt presents with onset of dizziness when she moves her head about 2 hrs ago which improves ehn still. Pt denies one sided weakness or slurred speech. Pt denies SON. Pt has history of vertigo but also some type of spontaneous csf leak according to brock. Pt says it was dificult to walk due to dizziness. Related Data Allergies Allergy/AdvReac Type Severity Reaction Status Date / Time clavulanic acid Allergy Mild Unknown Verified 01/14/25 10:06 amoxicillin Allergy Unknown Swelling Verified 01/14/25 10:06 Review of Systems Review of Systems: All systems reviewed & are unremarkable except as noted in HPI and below PMFSH Past Medical History Medical History HLD (hyperlipidemia) GERD (gastroesophageal reflux disease) ERIBERTO (generalized anxiety disorder) Essential (primary) hypertension Family History Family History Mother Patient's mother is in good health Sibling Patient's sister is in good health Patient's brother is in good health Social History Social History Smoking packs per day: 0 Smoking cigarettes per day: 0.0 Years smoked: 20 Smoking pack-years: 0.00 Tobacco type: cigarettes Second hand tobacco smoke exposure: No Smoking end date: 03/06/15 Alcohol intake: never Substance use: never Substance use type: does not use Living arrangements: with family Occupation/Education: occupation Gender identity (if verbalized by the patient): Female Sexual Orientation (if Verbalized by the Patient): Straight or Heterosexual Exam Const: General: healthy appearing and no acute distress Nutritional Appearance: well nourished Orientation/consciousness: patient oriented x3 Limitations: no limitations HENMT: Head: normal to inspection Ears: TM's normal bilaterally Eyes: Pupils: Equal, round and reactive pupils present EOM: EOMs intact bilaterally Neck: Neck: normal visual inspection Resp: Effort & Inspection: normal respiratory effort Auscultation: clear to auscultation bilaterally Cardio: Rate: regular rate Rhythm: regular rhythm GI: GI Palp: Yes Soft to palpation and No Tenderness to palpation present (GI) Auscultation: normal bowel sounds Back/Spine/Pelvis: Back: no CVA tenderness Skin: General skin exam: normal color Rashes: no rashes Wounds: no wounds Neuro: General: patient oriented x3, moves all extremities, no meningeal signs, no focal motor deficits and CN's II-XI intact bilaterally Cranial nerves: Yes Nystagmus not present Speech: normal speech Other: dizzines reproduced with head movement improved when still Extrem: General: normal to inspection and no clubbing, cyanosis or edema Psych: Mental Status: mental status grossly normal Affect: normal affect Attitude: cooperative Course Vital Signs Vital signs: Vital Signs Temperature 97.6 F 01/14/25 09:55 Pulse Rate 73 01/14/25 09:55 Respiratory Rate 16 01/14/25 09:55 Blood Pressure 172/71 H 01/14/25 09:55 Pulse Oximetry 96 01/14/25 09:55 Temperature 97.6 F 01/14/25 09:55 Pulse Rate 69 01/14/25 11:20 Respiratory Rate 19 01/14/25 11:20 Blood Pressure 140/76 01/14/25 11:20 Pulse Oximetry 97 01/14/25 11:20 MDM - Neuro Symptoms/Deficit MDM Narrative Medical decision making narrative: ct head and cta head and neck as well as labs unremarkable ekg unremarkable. Pt feels better with antivert and zofran. home on these Differential Diagnosis Differential diagnosis: Likely subarachnoid hemorrhage, peripheral neuropathy, cerebrovascular accident, transient cerebral ischemia and other (csf leak, bpv) Lab Data Attestation: I reviewed the patient's lab results. 01/14/25 09:45 01/14/25 09:45 Labs: Lab Results 01/14/25 01/14/25 Range/Units 09:30 09:45 WBC 6.9 (4.5-10.0) K/mm3 RBC 4.61 (4.2-5.4) M/mm3 Hgb 13.3 (12.0-15.0) g/dL Hct 40.7 (37.0-47.0) % MCV 88.3 (80-100) fl MCH 28.9 (26-34) pg MCHC 32.7 (32-36) g/dl RDW 12.9 (11.5-14.5) % Plt Count 150 (150-375) k/mm3 MPV 10.7 H (7.4-10.4) fl Immature Gran % (Auto) 0.3 (0-0.5) % Neut % (Auto) 75.7 H (45.5-73.1) % Lymph % (Auto) 16.1 L (18.3-44.2) % [place] % (Auto) 6.0 (2.6-8.5) % Eos % (Auto) 1.6 (0-4.4) % Baso % (Auto) 0.3 (0.2-1.2) % Lymph # (Auto) 1.11 (0.9-3.2) K/mm3 [place] # (Auto) 0.4 (0.1-0.6) K/mm3 Eos # (Auto) 0.1 (0-0.3) K/mm3 Baso # (Auto) 0.0 (0.0-0.1) K/mm3 Abs Immat Gran (auto) 0.02 (0.00-0.031) K/mm3 Absolute Neuts (auto) 5.2 (1.3-6.7) K/mm3 Absolute Nucleated RBC 0.000 (0.0-0.012) K/mm3 Nucleated RBC % 0.0 (0.0-0.2) % PT 13.9 (11.1-14.7) Seconds INR 1.1 APTT 32.7 (22.3-36.8) Seconds Sodium 140 (137-145) mmol/L Potassium 4.0 (3.4-5.0) mmol/L Chloride 103 (98-107) mmol/L Carbon Dioxide 27 (22-30) mmol/L Anion Gap 10 (4-12) mmol/L BUN 15 (7-17) mg/dL Creatinine 0.75 (0.7-1.0) mg/dL Estim Creat Clear Calc 63 ml/min Estimated GFR > 60 (59 - ) Glucose 157 H (65-110) mg/dL POC Capillary Glucose 169 H (65-105) mg/dl Calcium 8.6 (8.4-10.2) mg/dL Total Bilirubin 0.8 (0.2-1.3) mg/dL AST 106 H (14-36) U/L ALT 78 H (6-35) U/L Alkaline Phosphatase 125 (38-126) U/L Troponin I < 0.012 (0.000-0.034) ng/mL Total Protein 8.5 H (6.3-8.2) g/dL Albumin 4.5 (3.5-5.1) g/dL Imaging Data Attestation: I personally reviewed and interpreted this imaging study as follows: My impression: no acute process Radiologist's impression: [place] [id number] [place] [address] CT Scan Report Signed Patient: Rona Deng : 1955 MR#: [id number] Age: 69 Acct:[id number] Loc: [facility] ADM Date: 01/14/[address]: Ordering Physician: Marcy Nnuez III, DO Date of Service: 01/14/25 Procedure(s): CT brain wo con Accession Number(s): [id number] cc: Marcy Nunez III, ~ EXAMINATION: CT brain wo con DATE: 01/14/2025 09:38 INDICATION: Stroke TECHNIQUE: Computed tomography (CT) of the head was performed without intravenous contrast. The dose-length product was 605.33 mGy-cm. COMPARISON: January 06, 2020 FINDINGS: No large acute ischemic event, mass effect or hemorrhage. Moderate diffuse chronic microvascular ischemic white matter changes. Mild diffuse volume loss. Calvarial structures appear stable. IMPRESSION: 1. No intracranial mass effect, hemorrhage or large acute ischemic event. 2. Chronic findings as above. Reviewed, dictated and finalized at location A. CLEANER Please be advised this is a medical document. It is intended for [id number] communication. It is written in medical language and may contain unfamiliar abbreviations or verbiage. Medical documents are intended to carry relevant information, facts as evident, and the clinical opinion of the practitioner at the time of the encounter. This report may have been done utilizing a voice recognition system. Attempts have been made to correct errors. However, there may be uncorrected grammatical, spelling, and recognition errors present. The file time of this note does not necessarily represent the time of service. Dictated By: Erasmo Thrasher MD 01/14/25 0939 Signed By: <Electronically signed by Erasmo Thrasher MD in OV> [place] [address] [address] [place] [address] CT Scan Report Signed Patient: Rona Deng : 1955 MR#: [id number] Age: 69 Acct:[id number] Loc: [facility] ADM Date: 01/14/[address]: Ordering Physician: Marcy Nunez III, DO Date of Service: 01/14/25 Procedure(s): CTA brain carotid Accession Number(s): [id number] cc: Marcy Nunez III, ~ EXAM/PROCEDURE: CTA brain carotid HISTORY: dizziness COMPARISON: Noncontrast head CT earlier same date. Also upper chest portion from chest CT January 22, 2017. TECHNIQUE: Contrast-enhanced CT angiography of the head and neck FINDINGS: Three-vessel left-sided arch noted with patent common carotid arteries. Approximately 50-60% stenosis in the proximal left subclavian artery at the origin on the arch and in the proximal portion. 50% stenosis in the proximal left ICA with a calcified plaque lesion, and 25% stenosis on the right side. The mid and distal cervical ICAs are patent throughout. Vertebral arteries are patent with the left vertebral artery slightly dominant. Within the intracranial circulation, anterior and middle cerebral arteries, as well as the basilar and posterior cerebral arteries are patent. No discrete aneurysm, dural sinus thrombosis, AVM or abnormal enhancing lesions/masses seen. No acute process seen in the neck soft tissues. Biapical nodular changes with fibrotic and emphysematous changes noted. Nodular foci not clearly changed from the 2017 exam. There is been progression in emphysematous and fibrotic changes however. Heart no acute process seen in the visualized portions of the upper chest. Degenerative changes throughout the spine. IMPRESSION: 1. No critical stenosis or occlusion seen. 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 2. Biapical nodular changes not clearly changed from the 2017 exam, although there has been progression in diffuse emphysematous and fibrotic changes. Reviewed, dictated and finalized at location A. CLEANER Please be advised this is a medical document. It is intended for [id number] communication. It is written in medical language and may contain unfamiliar abbreviations or verbiage. Medical documents are intended to carry relevant information, facts as evident, and the clinical opinion of the practitioner at the time of the encounter. This report may have been done utilizing a voice recognition system. Attempts have been made to correct errors. However, there may be uncorrected grammatical, spelling, and recognition errors present. The file time of this note does not necessarily represent the time of service. Dictated By: Erasmo Thrasher MD 01/14/25 0951 Signed By: <Electronically ECG Data EKG #1: Attestation: I personally reviewed and interpreted this ECG as follows: Interpretation: nsr rate [address] changes Discharge Plan Discharge Clinical Impression: Vertigo Patient Disposition: Home Condition: Improved Instructions: Antibiotic Form, Vertigo (ED) Patient Language: Upper Sorbian Prescriptions: New meclizine 25 mg tablet 25 mg PO TID Qty: 30 0RF ondansetron 4 mg tablet,disintegrating 4 mg PO Q8H PRN (Reason: nausea and vomiting) Qty: 20 0RF No Action famotidine 40 mg tablet 40 mg PO DAILY PRN (Reason: reflux) Qty: 90 2RF rosuvastatin 5 mg tablet 5 mg PO DAILY Qty: 90 1RF escitalopram oxalate 20 mg tablet 20 mg PO DAILY Qty: 90 3RF lisinopril 40 mg tablet 40 mg PO DAILY Qty: 90 1RF Follow-up/Referrals: Robinson Farfan MD [Primary Care Provider, Family Practice]
[2025-01-14 11:20] VITALS: BP 140/76; PULSE 69; RESP 19; O2SAT 97
== END 2025-01-14 12:08 | disposition home or self-care (01) ==
PROVIDERS: Emergency Provider Emergency Medicine; PCP Family Medicine
DX: R42 Dizziness and giddiness (principal); I10 Essential (primary) hypertension; E78.5 Hyperlipidemia, unspecified; K21.9 Gastro-esophageal reflux disease without esophagitis; F41.1 Generalized anxiety disorder; Z87.891 Personal history of nicotine dependence; Z79.899 Other long term (current) drug therapy; R94.31 Abnormal electrocardiogram [ECG] [EKG]; I65.23 Occlusion and stenosis of bilateral carotid arteries; I77.1 Stricture of artery
CPT/HCPCS: 36415; 70450; 70496; 70498; 80053; 82948; 84484; 85025; 85610; 85730; 93005; 99284; A9270; J2405; Q9967

== ENCOUNTER 2025-02-13 07:01 | Outpatient (CLI) | payer BC, SELFPAY ==
[2025-02-13 07:33] LABS: Hemoglobin A1C 6.9 % (<5.7)
[2025-02-13 07:38] LABS: Alanine Aminotransferase 59 U/L (6-35); Albumin Level 4.6 g/dL (3.5-5.1); Alkaline Phosphatase 127 U/L (38-126); Anion Gap 9 mmol/L (4-12); Aspartate Amino Transferase 87 U/L (14-36); Bilirubin,Total 1.1 mg/dL (0.2-1.3); Blood Urea Nitrogen 17 mg/dL (7-17); Calcium 9.3 mg/dL (8.4-10.2); Carbon Dioxide 24 mmol/L (22-30); Chloride 106 mmol/L (98-107); Cholesterol 171 mg/dL (0-200); Estimated Glomerular Filt Rate > 60; Glucose 141 mg/dL (65-110); HDL Direct 32 mg/dL; Potassium 4.2 mmol/L (3.4-5.0); Sodium 139 mmol/L (137-145); Total Protein 8.7 g/dL (6.3-8.2); Triglycerides 195 mg/dL (<150)
== END 2025-02-13 07:02 | disposition home or self-care (01) ==
PROVIDERS: PCP Family Medicine; Visit Provider Physician Assistant
DX: E78.5 Hyperlipidemia, unspecified (principal); I10 Essential (primary) hypertension; E11.9 Type 2 diabetes mellitus without complications
CPT/HCPCS: 36415; 80053; 80061; 83036